=== PATIENT | female | born 1985 | race Caucasian/White ===

== ENCOUNTER 2017-03-23 19:34 | Emergency (ER) | payer BC ==
[~2017-03-23] VITALS: Ht 162.6 cm; Wt 74.0 kg
[2017-03-23] MEDS ORDERED: DIAZEPAM 5 MG TABLET ONE (20:27)
[2017-03-23] MEDS ORDERED: IBUPROFEN 200 MG TABLET ONE (20:27)
[2017-03-23] MEDS ORDERED: OXYcodone/APAP 5/325MG TABLET ONE (20:27)
[2017-03-23] MEDS ORDERED: DIAZEPAM 5 MG TABLET PO ONE (20:30)
[2017-03-23] MEDS ORDERED: OXYcodone/APAP 5/325MG TABLET PO ONE (20:30)
[2017-03-23] MEDS ORDERED: IBUPROFEN 200 MG TABLET PO ONE (20:30)
[2017-03-23 22:27] LABS: BLOOD UREA NITROGEN 17 mg/dL (7-18)
[2017-03-23 22:59] VITALS: BP 96/63
== END 2017-03-23 22:55 | disposition home or self-care (01) ==
LOC: ED 22:49
DX: S43.61XA Sprain of right sternoclavicular joint, initial encounter (principal); S39.012A Strain of muscle, fascia and tendon of lower back, initial encounter; V89.2XXA Person injured in unspecified motor-vehicle accident, traffic, initial encounter; Y93.89 Activity, other specified; Y99.8 Other external cause status; Y92.488 Other paved roadways as the place of occurrence of the external cause
CPT/HCPCS: 36415; 71020; 72050; 72072; 72110; 80048; 82040; 84703; 85025; 93005; 99285